=== PATIENT | male | born 1970 | race Caucasian/White ===

== ENCOUNTER 2021-03-23 08:20 | Emergency (ER) | payer SELFPAY ==
[2021-03-23 08:21] VITALS: BP 139/92; PULSE 110; RESP 16; TEMP 37; O2SAT 98; BMI 23.8
[2021-03-23 08:33] VITALS: BP 124/82; BP 135/86; BP 142/88; PULSE 106; PULSE 108; PULSE 90; RESP 16; O2SAT 98
[2021-03-23 08:45] LABS: Basophils % 0.2 % (0.1-2.0); Eosinophils % 0.3 % (0.1-12.0); Hematocrit 50.8 % (42.0-52.0); Hemoglobin 17.4 g/dL (14.1-18.0); Lymphocytes # 0.9 K/mm3 (0.7-4.5); Lymphocytes % 6.3 % (10-50); Mean Corpuscular HGB Conc 34.2 g/dL (31.8-35.4); Mean Corpuscular Hemoglobin 27.2 pg (27.0-31.2); Mean Corpuscular Volume 79.4 fl (80-94); Mean Platelet Volume 7.3 fl (7.4-10.4); Monocytes # 0.5 K/mm3 (0.1-1.0); Monocytes % 3.3 % (1.7-9.3); Neutrophils # 12.3 K/mm3 (1.8-7.8); Neutrophils % 89.8 % (37.0-80.0); Platelet Count 291 K/mm3 (142-424); Red Cell Distribution Width 13.3 % (11.5-17.5); White Blood Count 13.7 K/mm3 (4.8-10.8)
[2021-03-23 08:47] LABS: MANUAL DIFFERENTIAL MANUAL DIFFERENTIAL (MANUAL DIFF)
[2021-03-23 08:54] LABS: Chloride 102 mmol/L (98-107); Sodium 136 mmol/L (136-145)
[2021-03-23 08:55] LABS: Potassium 4.2 mmoL/L (3.5-5.1)
[2021-03-23 08:57] LABS: Alanine Aminotransferase 45 U/L (12-78); Alkaline Phosphatase 52 U/L (38-126); Aspartate Amino Transferase 34 U/L (17-59); Bilirubin,Total 1.1 mg/dl (0.2-1.3); Blood Urea Nitrogen 24 mg/dl (9-20); Creatinine Clearance Estimated 107 mL/min (50-200); Estimated Glomerular Filt Rate 103 ml/min (>60); GFR (African American) 125 ML/MIN (>60)
[2021-03-23 08:58] LABS: Albumin Level 5.1 g/dl (3.5-5.0); Albumin/Globulin Ratio 1.3 (1.1-1.8); Anion Gap 15.2 mEq/L (5-15); Calcium 10.1 mg/dl (8.4-10.2); Carbon Dioxide 23 mmol/L (22.0-30.0); Globulin 3.8 g/dL (1.3-3.2); Glucose 130 mg/dl (74-100); Total Protein,Serum 8.9 g/dl (6.3-8.2)
[2021-03-23 09:00] VITALS: BP 135/87; PULSE 89; RESP 16; O2SAT 98
--- NOTE | 2021-03-23 09:01 | [facility].EDGENADL ---
ED Disposition Clinical Impression: Gastroenteritis Disposition: Home, Self-Care Condition on Discharge: Good Instructions: DI for Diarrhea and Traveler's Diarrhea -- Child, DI for Nausea -- Adult, DI for Nausea -- Child, DI for Diarrhea and Traveler's Diarrhea -- Adult Additional Instructions: drink plenty of fluids and follow up with dr. blackman in 3-4 days if symptoms have not improved. return to the ER if you develop blood in stool or worsening symptoms Referrals: Ramesh Blackman MD [Primary Care Provider] - - Critical Care Critical Care Time: No Attestation: On 03/23/21, the high probability of a clinically significant, sudden or life threatening deterioration of the following system(s) required my full and direct attention, intervention and personal management. The time I documented below is in addition to time spent performing reported procedures but includes the following listed in this critical care notation. Medical Decision Making - Medical Records Medical records reviewed: Yes: I reviewed the patient's medical records. - Yuriy Inquiry Pt receiving controlled substance: No Vital Signs: 03/23/21 08:21 03/23/21 08:33 03/23/21 09:00 Temperature 98.6 F Temperature Source Oral Pulse Rate 106 H 89 Pulse Rate [Orthostatic Lying] 90 Pulse Rate [Orthostatic Standing] 108 H Pulse Rate [Radial] 110 H Respiratory Rate 16 16 16 Blood Pressure 135/86 135/87 Blood Pressure [Orthostatic Lying] 142/88 H Blood Pressure [Orthostatic Standing] 124/82 Blood Pressure [Right Arm] 139/92 H Blood Pressure Mean [Right Arm] 107 Blood Pressure Position Sitting Sitting Blood Pressure Position [Right Arm] Sitting 02 Sat by Pulse Oximetry 98 98 98 Oxygen Delivery Method Room Air Room Air Room Air 03/23/21 09:30 Temperature Temperature Source Pulse Rate 83 Pulse Rate [Orthostatic Lying] Pulse Rate [Orthostatic Standing] Pulse Rate [Radial] Respiratory Rate Blood Pressure 122/84 Blood Pressure [Orthostatic Lying] Blood Pressure [Orthostatic Standing] Blood Pressure [Right Arm] Blood Pressure Mean [Right Arm] Blood Pressure Position Blood Pressure Position [Right Arm] 02 Sat by Pulse Oximetry 96 Oxygen Delivery Method Room Air - Lab Data Lab results reviewed: Yes: I reviewed the patient's lab results. Lab Results 03/23/21 08:37: Sodium 136, Potassium 4.2, Chloride 102, Carbon Dioxide 23, Anion Gap 15.2 H, BUN 24 H, Creatinine 0.80, Estimated Creat Clear 107, Estimated GFR 103, Est GFR ( Amer) 125, Glucose 130 H, Calcium 10.1, Total Bilirubin 1.1, AST 34, ALT 45, Alkaline Phosphatase 52, C-Reactive Protein 25.2 H, Total Protein 8.9 H, Albumin 5.1 H, Globulin 3.8 H, Albumin/Globulin Ratio 1.3 03/23/21 08:37: ESR 1 03/23/21 08:41: WBC 13.7 H, RBC 6.40 H, Hgb 17.4, Hct 50.8, MCV 79.4 L, MCH 27.2, MCHC 34.2, RDW 13.3, Plt Count 291, MPV 7.3 L, Neut % (Auto) 89.8 H, Lymph % (Auto) 6.3 L, Brown % (Auto) 3.3, Eos % (Auto) 0.3, Baso % (Auto) 0.2, Neut # (Auto) 12.3 H, Lymph # (Auto) 0.9, Brown # (Auto) 0.5, Eos # (Auto) 0.0, Baso # (Auto) 0.0, Total Counted 100, Neutrophils % (Manual) 84 H, Lymphocytes % (Manual) 11, Monocytes % (Manual) 4, Eosinophils % (Manual) 1 03/23/21 09:00: Urine Color Yellow, Urine Appearance Sl cloudy, Urine pH 6.0, Ur Specific [place] 1.025, Urine Protein Trace, Urine Glucose (UA) Negative, Urine Ketones Trace, Urine Blood Negative, Urine Nitrate Negative, Urine Bilirubin 1+ A, Urine Urobilinogen 0.2, Ur Leukocyte Esterase Negative, Urine RBC None, Urine WBC 3-5, Ur Squamous Epith Cells Occasional, Urine Bacteria None, Urine Mucus 1+ Result diagrams: 03/23/21 08:41 03/23/21 08:37 Orders (Tests/Meds): ED MEDICATIONS Discontinued Medications Generic Name Dose Route Start Last Admin Trade Name Freq PRN Reason Stop Dose Admin Sodium Chloride 1,000 mls @ 999 mls/hr 03/23/21 08:45 Sod Chlor 0.9% 1000ml Bag IV 03/23/21 09:45 .[id number] MARISEL ORDE
--- NOTE | 2021-03-23 09:02 | ECG_ITS ---
APPROVED REPORT Exam: Resting ECG HR:78 bpm ECG Measurements Heart Rate 78 AXES ID 166 P 53 QRSd 84 QRS 49 QT 364 T 29 QTc 414 Conclusion Normal sinus rhythm Possible Left atrial enlargement Left ventricular hypertrophy Abnormal ECG Electronically signed by : Carlos St, 03/24/2021 17:50:34
[2021-03-23 09:03] LABS: C-Reactive Protein 25.2 mg/L (0-4)
--- NOTE | 2021-03-23 09:14 | PC.NURSE ---
pt up to bathroom, pt c/o feeling dizzy when getting out of bed.
[2021-03-23 09:15] LABS: Erythrocyte Sedimentation Rate 1 mm/hr (0-15)
[2021-03-23 09:25] LABS: Microscopic, Urine URINE MICROSCOPIC (MICROSCOPIC)
[2021-03-23 09:25] LABS: Adenovirus F 40/41, stool Not Detected (NotDetected); Astrovirus Not Detected (NotDetected); Campylobacter Not Detected (NotDetected); Clostridium Difficile A/B, PCR Not Detected (NotDetected); Cryptosporidium Not Detected (NotDetected); Cyclospora Cayetanesis Not Detected (NotDetected); Entamoeba histolytica Not Detected (NotDetected); Enteroaggregative E coli Not Detected (NotDetected); Enteropathogenic E coli Not Detected (NotDetected); Enterotoxigenic E coli Not Detected (NotDetected); Giardia lamblia Not Detected (NotDetected); Norovirus Not Detected (NotDetected); Plesimonas Shigalloides, PCR Not Detected (NotDetected); Rotavirus A Not Detected (NotDetected); Salmonella, PCR Not Detected (NotDetected); Sapovirus Not Detected (NotDetected); Shiga-like toxin E coli Not Detected (NotDetected); Shigella Enterovasive E coli Not Detected (NotDetected); Vibrio Cholerae Not Detected (NotDetected); Vibrio, PCR Not Detected (NotDetected); Yersinia Entercolitica, PCR Not Detected (NotDetected)
[2021-03-23 09:28] LABS: Appearance,Urine SL CLOUDY (Clear); Blood, Urine Negative (Negative); Color,Urine YELLOW (Yellow); Glucose,Urine (UA) Negative (Negative); Ketones,Urine TRACE (Negative); Leukocyte Esterase,Urine Negative (Negative); Nitrate,Urine Negative (Negative); Protein,Urine TRACE (Negative); Specific Gravity, Urine 1.025 (1.005-1.030); Urobilinogen,Urine 0.2 EU/dl (0.2)
[2021-03-23 09:30] VITALS: BP 122/84; PULSE 83; O2SAT 96
[2021-03-23 09:47] LABS: Bilirubin,Urine 1+ (Negative)
[2021-03-23 09:48] LABS: Squamous Epithelial Cell,Urine Occasional #/hpf (0-5)
[2021-03-23 09:49] LABS: Mucus,Urine 1+ /lpf
[2021-03-23 09:51] LABS: Eosinophils % 1 % (0-3); Lymphocytes % 11 % (10-50); Monocytes % 4 % (2-9); Neutrophils % 84 % (42-76); Total Cells Counted 100
[2021-03-23 09:57] VITALS: BP 122/74; PULSE 92; RESP 16; TEMP 37; O2SAT 98
[2021-03-23 10:20] LABS: Platelet Estimate Normal; RBC Morphology Normal
== END 2021-03-23 09:58 | disposition home or self-care (01) ==
PROVIDERS: Emergency Medicine; Emergency Provider Emergency Medicine; PCP Family Medicine
DX: K52.9 Noninfective gastroenteritis and colitis, unspecified (principal)
CPT/HCPCS: 80053; 81001; 85007; 85025; 85651; 86140; 87507; 93005; 96365; 99283